=== PATIENT | male | born 1940 | race Caucasian/White ===

== ENCOUNTER 2019-03-18 15:25 | Inpatient (IN) ==
--- NOTE | 2019-03-18 15:56 | Diag Imaging Result Doc PS360 ---
EXAM: CHEST-1 VIEW 03/18/2019 HISTORY: sepsis TECHNIQUE: AP portable upright at 1542 COMMENT: There is a Port-A-Cath on the right with its tip over the superior vena cava. The inspiration is better than on 11/24/2018. There is no evidence of acute pulmonary disease. IMPRESSION: No evidence of acute disease. Electronically signed by Eliot Collazo 03/18/2019 3:53 PM
[2019-03-18 16:06] LABS: BASO# 0.04 X1000 (0.0-0.2); BASO% 0.3 % (0.0-0.8); EOS# 0.03 X1000 (0.0-0.7); EOS% 0.3 % (0.0-10.0); HEMATOCRIT 32.1 % (42.0-52.0); HEMOGLOBIN 11.3 g/dL (14.0-18.0); IMM GRAN# 0.03 X1000 (0.0-0.04); IMM GRAN% 0.3 % (0.0-0.5); LYMPH# 0.37 X1000 (1.2-3.4); LYMPH% 3.1 % (20.5-51.1); MCH 30.8 PG (27-31); MCHC 35.2 g/dL (33-37); MCV 87.5 FL (81-99); MONO# 1.26 X1000 (0.11-0.59); MONO% 10.5 % (1.7-9.3); MPV 9.8 FL (7.4-10.4); NEUT# 10.25 X1000 (1.4-6.5); NEUT% 85.5 % (42.2-75.2); PLT 192 X1000 (130-400); RBC 3.67 XMIL (4.7-6.1); WBC 11.98 X1000 (4.8-10.8)
[2019-03-18 16:16] LABS: INR 1.23; PROTIME 16.5 Seconds (11.0-16.0)
[2019-03-18 16:17] LABS: URINE SOURCE CLEAN CATCH
[2019-03-18 16:17] LABS: PTT 42.8 Seconds (22.3-41.8)
[2019-03-18 16:24] LABS: ALB/GLOB RATIO 1.6; ALBUMIN 3.9 g/dL (3.5-5.0); CALCIUM 8.9 mg/dL (8.8-10.2); CREATININE 2.2 mg/dL (0.7-1.2); TOTAL BILIRUBIN 0.98 mg/dL (0.20-1.00); TOTAL PROTEIN 6.3 g/dL (6.3-8.3)
[2019-03-18 16:25] LABS: UR EPITHELIAL CELLS <10 /HPF (<10); URINE BACTERIA NEGATIVE /HPF; URINE RBC <10 /HPF (<10)
[2019-03-18 16:26] LABS: BILIRUBIN URINE NEGATIVE (NEGATIVE); BLOOD URINE TRACE (NEGATIVE); COLOR YELLOW; GLUCOSE URINE NEGATIVE (NEGATIVE); KETONE URINE NEGATIVE (NEGATIVE); LEUKOCYTES URINE LARGE (NEGATIVE); NITRITE URINE NEGATIVE (NEGATIVE); PH URINE 6.5; PROTEIN URINE TRACE mg/dL (NEGATIVE); TURBIDITY URINE CLEAR (CLEAR); UROBILINOGEN URINE NORMAL (NORMAL)
[2019-03-18] MEDS ORDERED: LEVAQUIN 500 MG/D5W 500 MG/100 ML IVPB IV ONE (16:40)
[2019-03-18] MEDS ORDERED: ZOSYN 2.25 GM in NS 50 ML IV ONE (16:40)
[2019-03-18] MEDS ORDERED: NS 1,000 ML IV ONE ×2 (16:41→16:49)
--- NOTE | 2019-03-18 17:25 | PROVIDER DOCUMENTATION ---
This chart was entered by Lissa Seaman Scribe, acting as scribe for Ade Boyle MD. HPI-Syncope/Dizziness - General Chief Complaint: Syncope Stated Complaint: SYNCOPE,BLADDER CANCER Time Seen by Provider: 03/18/19 16:18 Source: patient Allergies/Adverse Reactions: Patient Allergies Allergy/AdvReac Type Severity Reaction Status Date / Time No Known Allergies Allergy Verified 03/18/19 16:05 Home Medications: Home Medication List Medication Instructions Recorded Confirmed Last Taken Type Multivitamin [Multi-Vitamin Daily] 1 tab PO DAILY 07/09/13 03/18/19 03/03/19 08:00 History Timolol 0.5% Oph Solution 1 drop LEFT EYE DAILY 07/09/13 03/18/19 03/03/19 08:00 History [Timoptic 0.5% Oph Solution] Acetaminophen [Tylenol Extra 2 tab PO Q4H PRN PRN 05/30/15 03/18/19 03/03/19 08:00 History Strength] Amlodipine [Norvasc] 5 mg PO DAILY 03/19/16 03/18/19 03/03/19 17:00 History Apixaban [Eliquis] 2.5 mg PO BID 03/19/16 03/18/19 02/25/19 08:00 History Losartan Potassium 12.5 mg PO DAILY 04/11/16 03/18/19 03/03/19 08:00 History Hydrocodone/APAP 7.5 mg/325 mg 1 ea PO Q6H PRN PRN #12 tab 11/24/18 03/18/19 03/03/19 17:00 Rx [[place]-7.5] Oxybutynin Chloride 5 mg PO BID 03/18/19 03/18/19 Unknown History Vitamin B Complex [B Complex] 1 ea PO DAILY 03/18/19 03/18/19 Unknown History Zinc 50 mg PO BID 03/18/19 03/18/19 Unknown History - History of Present Illness-Syncope/Dizzy Nature of Presenting Problem: Patient is a 78 year old male who presents to the ED after having a syncopal episode. Patient states he was dizzy and had a headache prior to passing out. States history of bladder cancer. Denies being on radiation and chemo currently. States recently having nephrostomy tubes placed. Report fever, chills and weakness currently. Prior Episodes: reports: single episode today Onset/Duration: reports: other (ELEV[employer] GUARD) Timing: reports: improving Symptoms prior to episode: reports: headache, other (dizziness) Context: reports: lost consciousness Loss of Consciousness: unsure Location of injury. (If syncope resulted in an injury.): reports: none Current Symptoms: reports: fever, chills, weakness, dizzy, headache Recently Seen Here or By Another Healthcare Provider: No - Dizziness Severity in ED: reports: mild Dizziness Related Current/Associated Symptoms: reports: headache Review of Systems - Adult - REVIEW OF SYSTEMS - ADULT Constitutional: reports: see HPI, chills, fever. denies: fatique Eyes: reports: no symptoms reported Ears, Nose, Mouth & Throat: reports: no symptoms reported Cardiovascular: reports: no symptoms reported Respiratory: reports: no symptoms reported Gastrointestinal: reports: no symptoms reported Genitourinary: reports: no symptoms reported Musculoskeletal: reports: see HPI, muscle weakness. denies: back pain, muscle aches, neck pain Integumentary: reports: no symptoms reported Neurological: reports: see HPI, dizziness/vertigo (dizziness), headache/migraines ([place]), syncope. denies: numbness, seizure Psychiatric: reports: no symptoms reported Endocrine: reports: no symptoms reported Hematologic/Lymphatic: reports: no symptoms reported Allergic/Immunologic: reports: no symptoms reported All Other Systems: Reviewed and Negative Past History - Adult - PAST MEDICAL HISTORY-ADULT Review of Records: reports: Old Records Reviewed, Nursing Assessment Review, Medications Reviewed, Social history reviewed & non-contributory. Major Childhood Illnesses: reports: denies history Cardiovascular: reports: HTN Respiratory: reports: denies history Gastrointestinal: reports: denies history Obstetrical/Gynecological: reports: denies history Genitourinary: reports: cancer. denies: kidney stones Musculoskeletal: reports: denies history Neurological: reports: denies history Psychiatric: reports: denies history Endocrine/Immune: reports: denies history Other Conditions: reports: denies history - PRIOR SURGERIES/PROCEDURES Surgical/Procedure History: reports: reviewed, not pertinent, tonsillectomy - IMMUNIZATION STATUS Childhood Immunizations: See Nurse Assessment Flu Vaccine: See Nurse Assessment - FAMILY HISTORY Family History: reviewed, not pertinent - SOCIAL HISTORY Smoking: cigarettes (former) Substance Use: denies Living Situation: family Physical Exam-General - PHYSICAL EXAM-ADULT Initial Vital Signs Reviewed: Yes - CONSTITUTIONAL General Appearance: alert, no apparent distress, lethargic, other (ill in appearance). negative: obtunded - RESPIRATORY Respiratory: chest non-tender, lungs clear, normal breath sounds. negative: crackles, rhonchi - CARDIOVASCULAR Cardiovascular: normal peripheral pulses, tachycardia. negative: systolic murmur - GASTROINTESTINAL (ABDOMEN) Abdominal Exam: normal bowel sounds, non tender, soft. negative: guarding, rebound - MUSCULOSKELETAL Back Exam: other (nephrostomy tubes bilaterally.). negative: ecchymosis, swelling Extremity: non-tender, normal inspection. negative: deformity, erythema - SKIN Integumentary: normal color, normal turgor, warm/dry. negative: cyanosis, ecchymosis, erythema, jaundice - NEUROLOGIC Neurologic: grossly normal. negative: aphasia, facial droop - PSYCHIATRIC Psych/Mental Status: oriented x 3, other (lethargic). negative: anxious Progress - PLAN OF CARE/RESULTS Progress/Plan/Lab Results: 03/18/19 15:47 - Final Blood Orders Category Date Time Status Admit - [facility] Routine AdmDCTranf 03/18/19 19:08 Active Activity - Up with Assistance ORDERED Care 03/18/19 19:08 Active Cardiac Monitoring DIRECTED Care 03/18/19 15:30 Completed Currently Rec Anticoagulation [QM] ROUTINE Care 03/18/19 19:08 Active I&O [Intake and Output-Strict] ORDERED Care 03/18/19 18:58 Active IV Insertion ORDERED Care 03/18/19 15:30 Completed Notify MD of + Sepsis Screen NOW Care 03/18/19 15:30 Active Notify Physician As Ordered Care 03/18/19 15:30 Active Nursing- MD Consult Request ROUTINE Care 03/18/19 19:08 Active Vital Signs Order Q 4-HR ASSESS Care 03/18/19 19:08 Active Z-Document. for Tele Applied ORDERED Care 03/18/19 19:09 Completed Physician/Provider Consults Routine Cons 03/18/19 19:07 Ordered Regular Diet Diet 03/18/19 19:09 Active CHEST-1 VIEW [RAD] Stat Exams 03/18/19 15:30 Completed BLOOD CULTURE [BLDCUL] Stat Lab 03/18/19 14:01 Results CBC WITH DIFF [HEME] Routine Lab 03/19/19 06:19 Completed CBC WITH DIFF [HEME] Stat Lab 03/18/19 15:47 Completed CK PROFILE [SP CHEM] Stat Lab 03/18/19 15:47 Completed COMPREHENSIVE METABOLIC PANEL [CHEM] Routine Lab 03/19/19 06:19 Completed COMPREHENSIVE METABOLIC PANEL [CHEM] Stat Lab 03/18/19 15:47 Completed GRAM STAIN [BLDCUL] Stat Lab 03/18/19 15:47 Results LACTATE, PLASMA [CHEM] Lab 03/18/19 18:40 Completed LACTATE, PLASMA [CHEM] Lab 03/18/19 23:34 Completed LACTATE, PLASMA [CHEM] Q3H Lab 03/18/19 15:47 Completed MAGNESIUM [CHEM] Routine Lab 03/19/19 06:19 Completed PHOSPHORUS [CHEM] Routine Lab 03/19/19 06:19 Completed PROTIME WITH INR [COAG] Stat Lab 03/18/19 15:47 Completed PTT [COAG] Stat Lab 03/18/19 15:47 Completed TROPONIN T Stat Lab 03/18/19 15:47 Completed URINALYSIS W/POSS RFLX CULT [URINALYSIS] Stat Lab 03/18/19 14:59 Completed URINE CULTURE [RM] Routine Lab 03/18/19 16:31 Results URINE CULTURE [RM] Routine Lab 03/18/19 18:55 Results URINE CULTURE [RM] Routine Lab 03/18/19 18:57 Results 0.9% Sodium Chloride Inj [Ns] 1,000 ml Med 03/18/19 19:15 Discontinued IV 100 mls/hr 0.9% Sodium Chloride Inj [Ns] 1,000 ml Med 03/18/19 16:41 Discontinued IV 999 mls/hr 0.9% Sodium Chloride Inj [Ns] 1,000 ml Med 03/18/19 16:49 Discontinued IV 999 mls/hr Acetaminophen [Tylenol] Med 03/18/19 17:54 Discontinued 650 mg .ROUTE .STK-MED ONE Acetaminophen [Tylenol] Med 03/18/19 17:50 Discontinued 650 mg PO NOW ONE CefEPIME [Maxipime] 1 gm Med 03/18/19 19:15 Active 0.9% Sodium Chloride Inj [Ns] 50 ml IV Q12H Levofloxacin 500 mg/D5w [Levaquin 500 mg/D5w] Med 03/18/19 16:40 Discontinued 500 mg in 100 ml IV NOW Linezolid 600 mg/D5w [Zyvox 600 mg/D5w] Med 03/18/19 20:00 Active 600 mg in 300 ml IV Q12H Ondansetron [Zofran] Med 03/18/19 19:08 Active 4 mg IV Q4H PRN PRN Piperacillin/Tazobactam [Zosyn] 2.25 gm Med 03/18/19 16:40 Discontinued 0.9% Sodium Chloride Inj [Ns] 50 ml IV NOW Polyethylene Glycol 3350 [Miralax] Med 03/19/19 09:00 Active 17 gm PO DAILY Telemetry [OM.EQ] Routine Oth 03/18/19 19:08 Active Transfer/Admit Order [TRANSFER] Routine Transfer 03/18/19 19:20 Completed Result Diagrams: 03/19/19 06:19 03/19/19 06:19 - EKG 1 Time of EKG reading by physician:: 15:37 EKG Read and Signed by:: Ade Boyle EKG Interpretation (*Must complete 3 of following elements*): Abnormal Rate: 92 Rhythm: atrial fibrillation [place]: left QRS: LBB Comments: abnormal ECG - CONSULTS/PCP/HOSPITALIST Notification #1 *Consult/PCP/Hospitalist*: Dr. Dickerson Time Discussed: 16:46 Reason/Comments: Dr. Boyle consulted with Dr. Dickerson about patient Consult Disposition: other (will consult on patient. have hospitalist admit) #2 Consult: YENIFER Gandara for Hospitalist Time Discussed: 17:17 Reason/Comments: Dr. Boyle consulted with Nichol about patient. Consult Disposition: Will see in ED, Admit Departure - Departure Date of Disposition Decision: 03/18/19 Time of Disposition Decision: 17:17 DIAGNOSIS: SIRS (systemic inflammatory response syndrome), UTI (urinary tract infection) Disposition: ADMITTED INPATIENT 09 Certified Medical Emergency: Emergent Condition: Fair - Critical Care Note This patient required my direct & personal management of CC.: No Attestation - Physician/ ARI Attestation The physician spent face to face time with patient:: Yes Advanced Practice Provider documentation review:: Supervising physician onsite and consulted in the evaluation and care of this patient. The physician did have a face to face encounter with the patient. This chart was documented by the nik scribe, (Lissa Seaman Scribe) and accurately reflects the services I performed and decisions made by me, Ade Boyle MD, as attested by the provider's signature.
[2019-03-18] MEDS ORDERED: TYLENOL PR ONE (17:47)
[2019-03-18] MEDS ORDERED: TYLENOL PO ONE (17:50)
[2019-03-18] MEDS ORDERED: TYLENOL ONE (17:54)
[2019-03-18] MEDS ORDERED: ZOFRAN IV PRN (19:08)
[2019-03-18] MEDS ORDERED: NS 1,000 ML IV SCH (19:15)
--- NOTE | 2019-03-18 20:05 | HISTORY AND PHYSICAL ---
CHIEF COMPLAINT: Syncope. HISTORY OF PRESENT ILLNESS: This is a 78-year-old gentleman with a history of bladder cancer status post chemo and radiation and subsequent bilateral percutaneous nephrostomies secondary to bladder outlet obstruction, which were placed on 03/04/2019. He reports fevers, chills and weakness over the last few days. He did start developing dizziness over the last 24 hours. Over the last 2 weeks he has had a decreased appetite, had some abdominal bloating. He has been taking prune juice as well as continued a bowel regimen and has had regular bowel movements with the last being this morning. 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 He is status post intravesical BCG with interferon and Valstar as well as radiation. Atrial fibrillation, hypertension, gastroesophageal reflux disease. PAST SURGICAL HISTORY: Multiple TURBTs, cardiac catheterization with stent placement, hernia repair, transurethral resection of the prostate, vasectomy, Port-A-Cath placement, bilateral percutaneous nephrostomy placement. SOCIAL HISTORY: He denies alcohol, tobacco, or illicit drug use. He is and lives with his . ALLERGIES: No known drug allergies. HOME MEDICATIONS: A list will be obtained by the nursing staff and once verified, we will review and restart as appropriate. REVIEW OF SYSTEMS: Discussed with the patient with pertinent positives stated in HPI. He denied any chest pain or palpitations, any vomiting, any diarrhea, any black or bloody vomitus or stools. PHYSICAL EXAMINATION: GENERAL: This is a 78-year-old gentleman who is lying in the bed in the emergency room in no distress. VITAL SIGNS: Blood pressure is 98/63 with a heart rate of 106, respirations are 18, temperature is 100.9 degrees with room air saturations 98%. EYES: Pupils equal, round, react to light. EOMs are intact. Sclerae anicteric. HEENT: Head is normocephalic, atraumatic. Mucous membranes are moist. NECK: Supple with trachea midline. CARDIOVASCULAR: Regular rate and rhythm. S1 and S2 appreciated. He has no lower extremity edema. Calves nontender bilateral with peripheral pulses palpable x4 extremities. PULMONARY: Breath sounds are clear. No increased work of breathing noted. Chest rises and falls symmetrically with respiration. GASTROINTESTINAL: Abdomen is soft, nontender. Bowel sounds in all 4 quadrants. GENITOURINARY: He has bilateral nephrostomy tubes to leg bags with yellow urine with sediment noted with sediment in the right greater than left. Sutures are intact. He does have a little redness around the area of the sutures on the left, but no drainage or tenderness to palpation. There is no warmth to this area. NEUROLOGIC: He is alert and oriented x3. SKIN: Warm and dry. LABS: WBC is 11.9 with hemoglobin 11.3, hematocrit 32.1, and platelets of 192,000. Sodium is 131, potassium 4, BUN 33, creatinine 2.2 with a glucose of 119. Urinalysis reveals large leukocytes with 10 to 20 white blood cells, less than 10 red blood cells and epithelial cells. Of note, this was taken out of one of his nephrostomy bags. Chest x-ray revealed no evidence of acute disease. Port-A-Cath on the right is with the tip over the superior vena cava. ASSESSMENT AND PLAN: 1. Syncope. 2. Sepsis, most likely from a urinary source. 3. Hypotension. 4. Fever. 5. Leukocytosis. 6. Chronic kidney disease. The patient reports creatinine of around 3.5 prior to percutaneous nephrostomies being placed. Today he is 2.2. We will renal dose his medications, continue hydration, hold any renal toxic medicines. We will consult Dr. Dickerson for management. 7. Recurrent urothelial carcinoma of the bladder status post multiple transurethral resections of bladder tumors with intravesical BCG, Valstar and radiation. 8. Atrial fibrillation, chronic. 9. Gastroesophageal reflux disease. PLAN: The patient will be admitted to the hospital, placed on telemetry. We will continue his home medications. strict input and output with separate totals from the left and right nephrostomy tubes. Blood cultures were obtained. Separate urine cultures were sent from the bilateral nephrostomy tubes. CBC, CMP, mag and phosphorus in the morning. Antibiotic coverage of cefepime and Zyvox. gentle hydration. Further treatments pending discussion with Dr Triana and hospital course. Dictated by YENIFER Garvey for Enzo Williamson MD Addendum: Patient seen and examined by myself. Agree with YENIFER note. It reflects my assessment and plan. Patient is being admitted to hospital for sepsis most like coming from UTI. Will start broad spectrum antibiotics pending result of urine culture. Will monitor patient closely. cc: YENIFER Garvey MD MTDD
[2019-03-18] MEDS ORDERED: NORCO-7.5 PO PRN (22:32)
[2019-03-18] MEDS ORDERED: NORVASC PO SCH (22:45)
[2019-03-18] MEDS: MAXIPIME 1 GM in NS 50 ML IV SCH (22:47)
[2019-03-18] MEDS: ZYVOX 600 MG/D5W 600 MG/300 ML IVPB IV SCH (23:12)
[2019-03-18] MEDS: ELIQUIS PO SCH (23:12)
[2019-03-18] MEDS: ZINC SULFATE PO SCH (23:12)
[2019-03-18] MEDS: THERA M PLUS PO SCH (23:12)
[2019-03-19 06:58] LABS: BASO# 0.02 X1000 (0.0-0.2); BASO% 0.2 % (0.0-0.8); EOS# 0.08 X1000 (0.0-0.7); HEMATOCRIT 29.9 % (42.0-52.0); HEMOGLOBIN 10.2 g/dL (14.0-18.0); IMM GRAN# 0.03 X1000 (0.0-0.04); IMM GRAN% 0.4 % (0.0-0.5); LYMPH% 4.8 % (20.5-51.1); MCH 30.5 PG (27-31); MCHC 34.1 g/dL (33-37); MCV 89.5 FL (81-99); MONO# 1.16 X1000 (0.11-0.59); MONO% 14.1 % (1.7-9.3); MPV 10.5 FL (7.4-10.4); NEUT# 6.56 X1000 (1.4-6.5); NEUT% 79.5 % (42.2-75.2); PLT 142 X1000 (130-400); RBC 3.34 XMIL (4.7-6.1); RDW 13.1 % (11.5-14.5); WBC 8.25 X1000 (4.8-10.8)
[2019-03-19 07:22] LABS: ALB/GLOB RATIO 1.2; ALBUMIN 3.3 g/dL (3.5-5.0); CALCIUM 8.9 mg/dL (8.8-10.2); CREATININE 2.1 mg/dL (0.7-1.2); MAGNESIUM 1.8 mg/dL (1.5-2.7); PHOSPHORUS 2.6 mg/dL (2.7-4.5); POTASSIUM 3.9 mmol/L (3.5-5.1); TOTAL BILIRUBIN 0.63 mg/dL (0.20-1.00); TOTAL PROTEIN 6.1 g/dL (6.3-8.3)
--- NOTE | 2019-03-19 07:54 | EKG Report ---
Test Performed on : 03/18/2019 3:37:46 PM Test Reason : ED. NO EKG ORDER FOR MUSE Blood Pressure : / mmHG Vent. Rate : 092 BPM Atrial Rate : 102 BPM P-R Int : 000 ms QRS Dur : 136 ms QT Int : 374 ms P-R-T Axes : 000 -52 104 degrees QTc Int : 462 ms Atrial fibrillation. Left axis deviation Left bundle branch block Abnormal ECG When compared with ECG of 07-MAY-2017 08:25, QRS axis shifted left Unconfirmed Result
[2019-03-19] MEDS: ZINC SULFATE PO SCH ×2 (08:24→20:14)
[2019-03-19] MEDS: VICON-C PO SCH (08:25)
[2019-03-19] MEDS: MAXIPIME 1 GM in NS 50 ML IV SCH ×2 (08:25→20:13)
[2019-03-19] MEDS: ELIQUIS PO SCH ×2 (08:25→20:14)
[2019-03-19] MEDS ORDERED: TIMOPTIC 0.5% OPH SOLUTION LEFT EYE SCH (09:00)
[2019-03-19] MEDS ORDERED: COZAAR PO SCH (09:00)
[2019-03-19] MEDS: ZYVOX 600 MG/D5W 600 MG/300 ML IVPB IV SCH ×2 (09:07→21:08)
[2019-03-19] MEDS: MIRALAX PO SCH (09:07)
--- NOTE | 2019-03-19 09:54 | Diag Imaging Result Doc PS360 ---
EXAM: US RENAL 2 (RETROPER) COMPLETE 03/19/2019 HISTORY: decreased renal function TECHNIQUE: Renal ultrasound COMMENT: The right kidney is 10.7 x 5.1 x 5.4 cm the left is 11.2 x 5 x 6.6 cm. There is no evidence of hydronephrosis masses or stones. There are bilateral percutaneous nephrostomy tubes. There is incidentally noted a 5.9 cm cyst in the anterior liver. The bladder is not demonstrated. IMPRESSION: No evidence of hydronephrosis. Electronically signed by Eliot Collazo 03/19/2019 9:52 AM
[2019-03-19 14:16] LABS: URINE SOURCE CATH
--- NOTE | 2019-03-19 14:20 | PROGRESS NOTE ---
DATE: 03/19/2019 INTERVAL HISTORY: Mr. Mariscal was admitted for suspected urosepsis, and was started on intravenous antibiotics. Both sets of blood cultures are growing gram-positive cocci. He is on intravenous linezolid and cefepime. Repeat set of blood culture is ordered for tomorrow. His WBC is getting better. SUBJECTIVE: Mr. Mariscal is feeling significantly better today as compared to yesterday. He is denying any more dizziness. He is eating okay. We discussed about the blood culture findings. We also discussed about future infectious disease and urology consultation. I answered all of his questions in terms of need for repeat blood cultures and long-term antibiotic plans based on culture. VITALS: Temperature 98.7 degrees, pulse 107, respiratory rate 18, blood pressure 110/68, and saturating 96% on room air. PHYSICAL EXAMINATION: General: He does not appear in any acute distress. Oral cavity is moist. Lungs: Air entry bilaterally equal. No wheeze, rhonchi, or crackles. Cardiovascular: S1, S2 normal. Irregularly irregular. No murmur, rub, or gallop. Abdomen: Soft and nontender. Extremities: No lower extremity edema. He has a right-sided chest port. : He has bilateral flank nephrostomy tube which is draining yellowish urine. Input and output not charted appropriately. LABORATORY: Suggestive of improving leukocytosis, normocytic anemia, normal platelet count. Correction of hyponatremia, hypochloremia, persistent what appears to be acute kidney injury. However, patient does mention that in January his creatinine was 3.5 so this is improvement. MICROBIOLOGY: Urine culture growing gram-positive cocci. One of the 2 blood cultures is growing gram-positive cocci. The second culture is pending. Labs: No new labs. IMAGING: Renal ultrasound did not detect any evidence of hydronephrosis. ASSESSMENT AND PLAN: 1. Urosepsis leading to fevers, chills, dizziness, and syncope on presentation. Continue intravenous linezolid and intravenous cefepime. Follow final blood and urine culture results, and change antibiotics accordingly. 2. Hyponatremia, hypochloremia, and suspected acute kidney injury or chronic kidney disease, status post intravenous fluid resuscitation. His sodium and chloride have normalized. Follow up frequent basic metabolic panels. His nephrostomy tubes are draining appropriately, and there is no hydronephrosis. 3. Recurrent urothelial carcinoma of urinary bladder status post multiple transurethral resection of bladder tumors with intra cycle BCG, Valstar, and radiation. His last chemo-radiation was in January of 2019. Based on final blood and urine cultures, I would involve Infectious Disease and Urology team if he would need further management of his bilateral nephrostomy tubes. He is supposed to get outpatient PET scan. Based on that, his outpatient urologist would plan either aggressive measurement with bladder resection versus conservative management with continued bilateral nephrostomy drainage. 4. Chronic atrial fibrillation. He is not listed to be taking any rate controlling medication. Currently, heart rate in acceptable range. Continue home Eliquis. 5. Others: Continue home multivitamins, Axis for chronic pain, glaucoma eye drops. 6. Disposition: Patient remains inside the hospital as I await final blood and urine culture results. Plan of care discussed with the patient. All of his questions have been satisfactorily answered. cc: Jonny Lam MD
[2019-03-19 14:22] LABS: BILIRUBIN URINE NEGATIVE (NEGATIVE); BLOOD URINE SMALL (NEGATIVE); COLOR YELLOW; GLUCOSE URINE NEGATIVE (NEGATIVE); KETONE URINE NEGATIVE (NEGATIVE); LEUKOCYTES URINE LARGE (NEGATIVE); NITRITE URINE NEGATIVE (NEGATIVE); PROTEIN URINE 30 mg/dL (NEGATIVE); SP GRAVITY URINE 1.011; TURBIDITY URINE CLEAR (CLEAR); UR EPITHELIAL CELLS <10 /HPF (<10); URINE BACTERIA NEGATIVE /HPF; URINE RBC 20-40 /HPF (<10); URINE WBC 20-40 /HPF (<10); UROBILINOGEN URINE NORMAL (NORMAL)
[2019-03-19 14:29] LABS: UR CREAT RANDOM 80.9 mg/dL (14-26); UR PROT RANDOM 39.3 mg/dL
--- NOTE | 2019-03-19 15:07 | NEPHROLOGY CONSULTATION ---
DATE: 03/19/2019 REASON FOR ADMISSION: Syncope. REASON FOR CONSULT: CKD with chronic management. CONSULTING PHYSICIAN: Dr. Genaro Pillai, [place]. HISTORY OF PRESENT ILLNESS: Mr. Mariscal is a 78-year-old, white male who had initially been seen in our office on 02/24/2019 for chronic kidney disease. He was referred to us by Dr. Damon. The patient has a history of known bladder cancer, had been treated by Dr. Damon, was found to have a bilateral hydronephrosis per CT. He was referred to [facility] and had been seen by Dr. Card for a second opinion for urology. He had a recent bilateral percutaneous nephrostomy secondary to bladder outlet obstruction. These were placed on 03/04/2019. The patient has had treatments for chemotherapy and radiation with his bladder cancer, and has seen Dr. Card x2. Unfortunately, he reports fever, chills, and weakness over the last few days prior to his admission. He developed dizziness over the 24 hours prior to his admission with decreased appetite, abdominal bloating. The patient had complaints of chest pain, was brought to [facility] for further monitoring and evaluation. At this time, he denies chest pain. No increased work of breathing. No nausea, vomiting. No diarrhea. States that he has had adequate urine output to his bilateral nephrostomies with no pain at these exit sites. He denies any hematuria, hemoptysis, or hematochezia. PAST MEDICAL HISTORY: Recurrent urothelial carcinoma with bladder, multiple TURBT's, status post intravesicular BCG with interferon and Valstar as well as radiation, chronic atrial fibrillation, hypertension, gastroesophageal reflux, and CKD stage 3 with chronic urinary tract infections. PAST SURGICAL HISTORY: He has a Port-A-Cath placement, bilateral percutaneous nephrostomy placement, multiple TURBT's, cardiac catheterization with stent placement, hernia repair, transurethral resection with prostate and vasectomy. He has also had bilateral cataracts in 2000 and 2004, varicose vein replacement in 1996, tonsillectomy 1957, eye surgery 1979, heart ablation in 2011, removal of his bladder tumor January 2014. SOCIAL HISTORY: He is . He lives with his spouse. Denies tobacco, alcohol, or illicit drug use. He was a previous smoker, stopped approximately 20 years ago. FAMILY HISTORY: Father is , diagnosed with heart disease. Mother is , not documented cause. ALLERGIES: Listed as MONA inhibitor affecting cough, diagnosed 02/23/2019. REVIEW OF SYSTEMS: Times 10 with pertinent positives listed above in the HPI. VITAL SIGNS: The patient's most recent vital signs are temperature 98.6 degrees, blood pressure 123/71, heart rate 85, respirations are 14. Highest temperature during the night was 100.9. He remains on room air. He has had 300 mL in, 1125 out with an IV infusing of normal saline at 100 mL an hour. LABS: Sodium 140, potassium 3.9, chloride 106, CO2 21, BUN 30, creatinine 2.1, glucose 104, anion gap of 13, calcium 8.9, phosphorus 2.6, albumin 3.3, magnesium 1.8. White count 8.25, hemoglobin 10.2, hematocrit 29.9, with a platelet count of 142,000. His prothrombin time is 16.5, with an INR of 1.23, PTT 42.8. PHYSICAL EXAMINATION: General: This is a 78-year-old, white male. He is resting quietly in bed. States that he would like to be sent home. He is scheduled for a PET scan next and would like to attend this treatment to see if there is anything further for recommendations for treatment. He appears in no acute distress. HEENT: Normocephalic, atraumatic. Conjunctivae are pale pink. He has DAVID. Mucous membranes are dry. Neck: Supple. Trachea midline. No evidence of JVD. Cardiovascular: Regular rate and rhythm. He is without murmur or gallop. Lungs: Clear to auscultation bilaterally. Equal excursion, on room air. Abdomen: Soft, nontender. Positive bowel sounds. Genitourinary: Not inspected: The patient has bilateral nephrostomies, posterior back, sutures remain intact. These have dressings that are intact without redness or drainage around the nephrostomy tubes. Extremities: Have no edema. No clubbing or cyanosis. Neurological: Alert and oriented x3. ASSESSMENT AND PLAN: 1. Chronic kidney disease stage 3. Patient's baseline creatinine is 1.1. He is at 2.1. This is now down from 2.2. It appears that he is septic, more than likely secondary to urinary source. The patient is currently receiving renal-dosed IV antibiotics of Maxipime and Zyvox. He has received Levaquin and Zosyn during the evening admission x1. We are attempting to collect urine electrolytes. Remains on normal saline at 100 mL an hour. 2. Recurrent urothelial carcinoma of the bladder, status post multiple transurethral resections with bladder tumors, now has bilateral nephrostomies. He has had adequate urine output documented, though urine has been sent for culture. 3. Electrolytes and acid-base balance. These are acceptable. 4. Anemia. This is acceptable. 5. Syncopal episode with chest pain. This has resolved. 6. Atrial fibrillation. Patient is actually rate controlled this morning. I would like to thank you for allowing us to follow with this patient. Dictated by YENIFER Butts for Rainer Dickerson MD Face to face encounter, data reviewed, discussed with Heavne Velazquez on 03/19/19. I agree with the above assessment and plan of care. cc: YENIFER Butts MD [facility]
[2019-03-19] MEDS: THERA M PLUS PO SCH (20:14)
[2019-03-19] MEDS: TIMOPTIC 0.5% OPH SOLUTION LEFT EYE SCH (20:14)
[2019-03-20 06:33] LABS: HEMATOCRIT 31.9 % (42.0-52.0); HEMOGLOBIN 10.4 g/dL (14.0-18.0); MCH 30.8 PG (27-31); MCHC 32.6 g/dL (33-37); MCV 94.4 FL (81-99); MPV 9.6 FL (7.4-10.4); RBC 3.38 XMIL (4.7-6.1); RDW 13.5 % (11.5-14.5); WBC 6.71 X1000 (4.8-10.8)
[2019-03-20 07:08] LABS: ALBUMIN 3.4 g/dL (3.5-5.0); CALCIUM 9.1 mg/dL (8.8-10.2); CREATININE 2.1 mg/dL (0.7-1.2); PHOSPHORUS 2.5 mg/dL (2.7-4.5); POTASSIUM 3.4 mmol/L (3.5-5.1)
[2019-03-20] MEDS: MAXIPIME 1 GM in NS 50 ML IV SCH (07:57)
[2019-03-20] MEDS: ELIQUIS PO SCH ×2 (08:04→21:07)
[2019-03-20] MEDS: VICON-C PO SCH (08:04)
[2019-03-20] MEDS: MIRALAX PO SCH (08:05)
[2019-03-20] MEDS: ZYVOX 600 MG/D5W 600 MG/300 ML IVPB IV SCH ×2 (08:36→21:07)
[2019-03-20] MEDS: ZINC SULFATE PO SCH ×2 (08:36→21:07)
--- NOTE | 2019-03-20 15:39 | NEPHROLOGY PROGRESS NOTE ---
DATE: 03/20/2019 SUBJECTIVE: He is feeling well, ambulatory. No difficulty. OBJECTIVE: Vital Signs: Blood pressure 136/68, heart rate 81, respirations 25. Afebrile. General: No acute distress. Skin: Warm and dry. Neck: Neck veins are not distended. Heart: Regular. Lungs: Equal. Abdomen: Soft, benign. Extremities: No edema. IMPRESSION: 1. Obstructive uropathy. Creatinine is stable at new baseline using bilateral nephrostomies. 2. Urosepsis, with Enterococcus faecalis as well as Pseudomonas aeruginosa. He is receiving broad-spectrum antibiotics. I discussed this with Dr. Lam because I think his coverage needs to change. I also asked Dr. Shaver to see the patient today to help us develop strategy regarding his nephrostomy tubes. cc: Rainer Dickerson MD
[2019-03-20] MEDS: LEVAQUIN 500 MG/D5W 500 MG/100 ML IVPB IV SCH (17:04)
[2019-03-20] MEDS ORDERED: NS 500 ML ONE (17:13)
--- NOTE | 2019-03-20 19:20 | PROGRESS NOTE ---
DATE: 03/20/2019 INTERVAL HISTORY: No acute events. His urine culture has been growing Enterococcus faecalis. One of the urine cultures is also growing Pseudomonas aeruginosa. Blood culture is growing gram- positive cocci, only 1 of the 2. We discussed with the patient about possible infectious disease and urology consultation. I answered all of his questions. SUBJECTIVE: He is feeling fine. Denies new complaints. No fever episodes. OBJECTIVE: Vitals: Temperature 98.5 degrees, pulse 85, respiratory rate 20, blood pressure 131/69, saturating 98% on room air. General: He is alert and oriented x3, not in acute distress. No pallor, cyanosis, clubbing, or icterus. Lungs: Air entry bilaterally equal. No wheeze, rhonchi, crackles. Cardiovascular: S1, S2 normal. No murmur, rub, or gallop. Abdomen: Soft, nontender. No lower extremity edema. He has bilateral nephrostomy tube which is connected with a bag draining yellowish urine. LABORATORY DATA: Suggestive of no leukocytosis, normocytic anemia normal platelet count. He has hypokalemia, and we will follow up with [facility] tomorrow. His BUN and creatinine are consistently decreasing rather slowly. No new imaging. EKG on admission had atrial fibrillation. ASSESSMENT AND PLAN: 1. Urosepsis with enterococcus and Pseudomonas. Change antibiotics to intravenous levofloxacin which is effective against both organisms. Continue intravenous linezolid until final blood culture result comes back. Based on that, I will order repeat blood cultures. I will consult Infectious Disease on Saturday if they have not been contacted already. I would also consult Urology tomorrow to discuss if he would potentially need replacement or change of bilateral nephrostomy tubes. 2. Hyponatremia, hypochloremia and suspected acute kidney injury on chronic kidney disease stage 3. Currently, he appears to be at his baseline, and electrolytes are normal. His nephrostomy tubes are draining properly. 3. Recurrent urothelial carcinoma of urinary bladder, status post multiple transurethral resection of tumors with intravesical BCG, Valstar and radiation. Last chemoradiation was in January 2019. I will consult Urology tomorrow. Apparently, patient was seen at [facility], and he has been provided an option of bladder resection; however, patient is thinking about just managing it conservatively at the moment. 4. Chronic atrial fibrillation. Continue home Eliquis. 5. Others: Continue home multivitamin; [place] for chronic pain, glaucoma eye drops. DISPOSITION: Patient remains inside the hospital as we await final blood culture, urine culture results. Based on that, further disposition to be decided. Plan of care discussed with him. All of his questions have been answered. cc: Jonny Lam MD
[2019-03-20] MEDS: TIMOPTIC 0.5% OPH SOLUTION LEFT EYE SCH (21:07)
[2019-03-20] MEDS: THERA M PLUS PO SCH (21:07)
[2019-03-21 07:59] LABS: ALBUMIN 3.5 g/dL (3.5-5.0); CALCIUM 8.8 mg/dL (8.8-10.2); CREATININE 2.1 mg/dL (0.7-1.2); PHOSPHORUS 3.1 mg/dL (2.7-4.5); POTASSIUM 3.6 mmol/L (3.5-5.1)
[2019-03-21 08:03] LABS: HEMATOCRIT 28.2 % (42.0-52.0); HEMOGLOBIN 9.7 g/dL (14.0-18.0); MCH 31.1 PG (27-31); MCHC 34.4 g/dL (33-37); MCV 90.4 FL (81-99); MPV 9.7 FL (7.4-10.4); RBC 3.12 XMIL (4.7-6.1); RDW 13.2 % (11.5-14.5); WBC 5.8 X1000 (4.8-10.8)
[2019-03-21] MEDS: VICON-C PO SCH (09:25)
[2019-03-21] MEDS: ZINC SULFATE PO SCH (09:25)
[2019-03-21] MEDS: ELIQUIS PO SCH (09:25)
[2019-03-21] MEDS: ZYVOX 600 MG/D5W 600 MG/300 ML IVPB IV SCH (09:25)
[2019-03-21] MEDS: MIRALAX PO SCH (09:26)
[2019-03-21] MEDS ORDERED: LEVAQUIN PO ONE (14:18)
[2019-03-21] MEDS: LEVAQUIN 500 MG/D5W 500 MG/100 ML IVPB IV SCH (14:39)
[2019-03-21 15:55] VITALS: BP 149/92
--- NOTE | 2019-03-21 17:21 | PROGRESS NOTE ---
DATE: 03/21/2019 INTERVAL HISTORY: All the urine cultures are growing Pseudomonas and Enterococcus, both of which are sensitive to levofloxacin. One blood culture is growing Staphylococcus epidermidis which is likely a contaminant. SUBJECTIVE: Patient denies any new complaints. We discussed about his infections, antibiotic plans. I answered all of his questions and after discussion with him, we decided to call urologist while inside the hospital, to make sure no urgent procedure needs to be performed. Based on that, I will discharge him today. VITAL SIGNS: Vital Signs: Temperature 98.3, pulse 97, respiratory rate 16, blood pressure 128/86, saturating 100% on room air. General: Does not appear in acute distress. Oral cavity is moist. Air entry bilaterally equal. No wheeze, rhonchi, crackles. Cardiovascular: S1, S2 normal. No murmur or gallop. Abdomen: Soft, nontender. He has bilateral nephrostomy tube which is draining yellowish urine. Extremities: No lower extremity edema. Neurologic: He is alert and oriented x3. LABS: Microbiology data as mentioned above. Hemoglobin of 9.7. He appears to have baseline what appears to be chronic kidney disease stage 3 to stage 4. ASSESSMENT AND PLAN: 1. Urosepsis with Enterococcus and Pseudomonas, associated with bilateral nephrostomy tube which was placed 2 weeks ago. 2. Hyponatremia, hypochloremia. 3. Suspected renal failure on admission, which is currently now stable at chronic kidney disease stage 3 or stage 4. 4. Recurrent urothelial carcinoma urinary bladder, status post multiple transurethral resection of tumors with intravesical BCG Valstar and radiation. Last chemo radiation was in January 2019. 5. Chronic atrial fibrillation. My plan is to discharge him on p.o. levofloxacin for a total of 2 weeks. I am holding his home antihypertensive medication. I am also consulting Urology as per patient's request to establish care and outpatient followup and have a discussion about if he would need change of nephrostomy tube. Plan of care discussed with him. All of his questions have been answered. cc: Jonny Lam MD
--- NOTE | 2019-03-21 18:08 | NEPHROLOGY PROGRESS NOTE ---
DATE: 03/21/2019 SUBJECTIVE: He is feeling well. He is sitting up in the chair. He ate his breakfast. No shortness of breath or other complaints. OBJECTIVE: Blood pressure 128/86, heart rate 97, respirations 16, afebrile. Generally in no acute distress. Skin is warm and dry. Neck veins are not distended. Heart is regular. Lungs are equal. Abdomen benign. Extremities: No edema. IMPRESSION AND PLAN: 1. Chronic kidney disease secondary to obstructive uropathy. At baseline. 2. Urosepsis. Blood cultures are actually not positive. One of 2 with Staphylococcus epidermidis consistent with contaminant. Both his urine organisms are sensitive to Levaquin. As such, discharge on Levaquin would be acceptable from my perspective. I discussed this with Dr. Lam. cc: Rainer Dickerson MD
--- NOTE | 2019-03-21 18:38 | CONSULTATION ---
DATE OF CONSULTATION: 03/21/2019 ATTENDING AND REFERRING PHYSICIAN: Hospitalist. HISTORY OF PRESENT ILLNESS: This 78-year-old male has a history of recurrent urothelial carcinoma of the bladder. This was originally diagnosed in February 2014. A bladder tumor was resected that revealed carcinoma in situ. He underwent BCG induction therapy with 3 maintenance cycles. At routine followup cystoscopic exam, his bladder washing cytology was very suspicious for malignancy. He underwent biopsy that was all benign. He then underwent repeat induction BCG and 5 maintenance cycles. At routine followup he was noted to have a large thickened red area on the left upper posterolateral wall. 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 He underwent transurethral resection of the prostate and all tissue was benign without evidence of urothelial CIS. He then underwent 1/3 strength BCG with interferon yessenia induction and 3 maintenance cycles. At follow up in May 2017 he was noted to have a bladder tumor. 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 He then underwent 6 intravesical treatments with Valstar. He did well but then end in September 2018 was noted to have a tumor and bladder washing for cytology had markedly atypical cells suspicious for malignancy. He underwent transurethral resection of red areas of the bladder and pathology revealed urothelial carcinoma in situ. Again radical cystectomy with formation of a conduit was discussed with the patient. He then decided on having chemotherapy with radiation. He has completed 3 cycles of chemotherapy and radiation therapy treatment. He had a 2nd opinion with Dr. Card in [place] and again cystectomy was recommended and he saw Dr. Reyes at [place]. His creatinine increased and he had bilateral percutaneous nephrostomy tubes placed in late February 2019. He started feeling really bad and had fever and evaluation revealed bilateral pyelonephritis. His urine cultures grew Pseudomonas and enterococcus. These are sensitive to Levaquin. One of 2 blood cultures was positive for Staph epidermatitis which is probably a contaminant. The patient states he is doing well. He states his percutaneous tubes are draining well. He has had no hematuria. 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 Status post multiple intravesical treatments and then chemotherapy with radiation. Atrial fibrillation, hypertension, gastroesophageal reflux disease. CURRENT MEDICATIONS: Documented on the chart and include Levaquin 750 mg a day. PAST SURGICAL HISTORY: Cataract surgery, transurethral resection of the prostate, multiple TURBTs, vasectomy, Port-A-Cath placement, bilateral percutaneous nephrostomy tube placement. SOCIAL HISTORY: No tobacco or alcohol use. He lives with his . ALLERGIES: No known drug allergies. REVIEW OF SYSTEMS: He states he is feeling much better after having the IV antibiotics. He states he has minimal urine through the penis. PHYSICAL EXAMINATION: General: A normally developed, well-nourished, age apparent, white male, oriented in all ways and cooperative. He states he is anxious to go home. HEENT: Normal for age. Cardiovascular: Irregular rate and rhythm consistent with his history of atrial fibrillation. No murmurs noted. Lungs: Clear. Abdomen: Flat, soft, nontender. No hepatosplenomegaly or masses. Normal bowel sounds. : Normal male. Both testes are down. Scrotal exam is normal. No inguinal hernias. Rectal: Deferred. Back: With bilateral percutaneous nephrostomy tubes in place with good drainage through the tube. Neuro: No focal deficits. LABORATORY EVALUATION: He has a white count of 5.8, hemoglobin 9.7, hematocrit 28.2, platelets are 161,000. Serum electrolytes are normal. BUN 26, creatinine 2.1. Renal ultrasound that was obtained at admission revealed bilateral percutaneous nephrostomy tubes in place without evidence of hydronephrosis, masses or stones. IMPRESSION: 1. Patient with long history of recurrent urothelial carcinoma in situ that has had maximum medical and radiation therapy. 2. Discussed with the patient cystectomy with formation of a conduit. He states he is considering that. 3. Continue Levaquin. 4. Follow up with [facility] as directed. 5. Discussed with patient the nephrostomy tubes should be changed in late May if they are still indwelling. 6. Discussed with the patient he could call with any urological concerns at any time. He can be discharged today from a urological point of view. Thank you for this consultation. cc: Javier Damon MD
--- NOTE | 2019-03-21 19:27 | DISCHARGE SUMMARY ---
ADMISSION DATE: 03/18/2019 DISCHARGE DATE: 03/21/2019 DISCHARGE DISPOSITION: Home. DISCHARGE CONDITION: Stable hemodynamically. Patient is alert and oriented x3. The patient is not having any nausea, vomiting or abdominal pain. His nephrostomy tube is draining clear urine. DISCHARGE DIAGNOSIS: 1. Urosepsis with Enterococcus and Pseudomonas. 2. Hyponatremia, hypochloremia. 3. Acute kidney injury on chronic kidney disease. 4. Staphylococcus epidermidis bacteremia, but only 1 of the 2 blood cultures were positive so likely a contaminant. OTHER DIAGNOSES: 1. Chronic atrial fibrillation on Eliquis. 2. Recurrent urothelial carcinoma of urinary bladder status post multiple transurethral resection of tumors with intravesical BCG, Valstar and radiation with last chemoradiation January 2019. 3. Bilateral hydronephrosis because of urothelial cancer leading to bilateral nephrostomy tubes. 4. Chronic atrial fibrillation. 5. Chronic kidney disease in stage 3B to stage 4 level. DISCHARGE MEDICATIONS: Vitamin B complex 1 tablet daily, apixaban 2.5 mg b.i.d., multivitamin 1 tablet daily, oxybutynin 5 mg b.i.d., timolol ophthalmic solution 1 drop left eye daily, acetaminophen 500 mg q.4 hours p.r.n. for pain, zinc 50 mg b.i.d., levofloxacin 500 mg daily 15 tablets have been prescribed, [place] 7.5 mg as needed for pain. VITALS: At the time of discharge temperature 98.3 degrees, pulse 97, respiratory rate 16, blood pressure 128/86, saturating 100% on room air. PHYSICAL EXAMINATION: General: Does not appear in any acute distress. Oral cavity is moist. Air entry bilaterally equal. No wheeze, rhonchi, crackles. Cardiovascular: S1, S2 normal. No murmur, rub, or gallop. Abdomen: Soft, nontender. He has bilateral nephrostomy tube draining clear urine. CONSULTATION: Nephrology Dr. Dickerson, Urology, Dr. Damon, urology. SIGNIFICANT LABS: At the time of discharge WBC 5.8, hemoglobin 9.7, platelet 161,000. Potassium 3.6, BUN 26, creatinine 2.1, GFR 31. Significant micro during examination. Urine culture growing Enterococcus faecalis group B and Pseudomonas aeruginosa sensitive to levofloxacin. SIGNIFICANT IMAGING: Renal ultrasound on March 19 did not detect any evidence of hydronephrosis. Chest x-ray on admission did not have any acute disease. HOSPITAL COURSE SUMMARY: Mr. Mariscal is a 78-year-old man with past medical history of recurrent urinary bladder cancer status post multiple intrathecal BCG chemotherapy radiation with bilateral hydronephrosis because of bladder outlet obstruction requiring bilateral nephrostomy on 03/04/2019 who came in with complaints of fevers, chills, weakness over the last few days associated with dizziness. He also had decreased appetite and some abdominal bloating. In the emergency room he was found to have fever of 100.9, had leukocytosis and he was tachycardic so he was admitted and was started on intravenous antibiotics. He was treated with intravenous antibiotics for suspected urinary tract infection associated with bilateral nephrostomy tube. Urine culture grew Pseudomonas and enterococcus which were sensitive to Levaquin and his antibiotics were changed to p.o. Levaquin at the time of discharge and 15 days course was given. Urology was also consulted considering he had nephrostomy tube and Dr. Damon recommended the patient to establish care as an outpatient and continue antibiotics until then. The patient was considering changing his outpatient urologist who was too far to go to. At the time of discharge only 1 of the 2 blood cultures were growing Staphylococcus epidermidis. It was thought to be a contaminant. His antihypertensive medications were held because his blood pressure was stable. He was provided detailed discharge instructions about following up with Dr. Dickerson, urology and his regular doctor. All of his questions were answered satisfactorily. TIME SPENT: More than 30 minutes. cc: MD JESSICA Garcia
== END 2019-03-21 17:36 | disposition home or self-care (01) | DRG 698 ==
LOC: ED 15:25 → SUATTDRO 21:30 → 4N 21:30
PROVIDERS: ATTEND Internal Medicine
CPT/HCPCS: 71010; 71045; 76770; 80053; 80069; 81001; 82550; 82570; 82948; 83605; 83735; 84100; 84156; 84300; 84484; 85025; 85027; 85610; 85730; 87040; 87077; 87088; 87186; 87205; 93005; 96365; 96368; 99285; A9270; J0692; J1956; J2020; J2543; J7030; J7040; XXXXX